=== PATIENT | female | born 2000 | race African-American/Black ===

== ENCOUNTER 2024-08-05 03:51 | Emergency (ER) | payer SELFPAY ==
[2024-08-05 04:07] LABS: Bilirubin Negative (Negative); Blood, Urine Trace (Negative); Glucose, Urine (Dipstick) Negative (Negative); Ketone, Urine Negative (Negative); Leukocyte Small (Negative); Nitrite Negative (Negative); Protein, Urine (Dipstick) Negative (Neg-Trace)
[2024-08-05 04:08] LABS: Pregnancy Test - Urine (BHCG) Negative (Negative); Pregu Control Background? CLEAR/WHITE (CLR/WHITE); Pregu Control Bar Appear? YES (CONTROL BAR)
[2024-08-05 04:12] LABS: Bacteria/HPF Rare-Few HPF (None Seen); CAUTI Indications for Culture Pelvic or flank pain; Clarity Hazy (Clear); Squamous Epithelial 0-3 HPF (0-3); Urine Culture Reflex Yes Yes; WBC/HPF 21-50 HPF (0-3)
[2024-08-05] MEDS ORDERED: Ketorolac Tromethamine 60 MG/2 ML VIAL ONE (04:19)
[2024-08-05] MEDS ORDERED: Sulfameth/Trimethoprim DS 800-160mg TAB ONE (04:19)
== END 2024-08-05 04:35 | disposition home or self-care (01) ==
LOC: NAV ERS 03:51
DX: R10.31 Right lower quadrant pain (principal); K59.00 Constipation, unspecified
CPT/HCPCS: 81001; 81025; 87077; 87086; 87186; 96372; 99284; J1885